=== PATIENT | female | born 1965 | race Caucasian/White ===

== ENCOUNTER 2018-04-02 17:51 | Inpatient (IN) | payer OTHER, SELFPAY ==
[2018-04-02 18:12] VITALS: BMI 28.9
[2018-04-02 18:45] VITALS: BP 144/94; PULSE 100; RESP 20; TEMP 37.4; O2SAT 98
--- NOTE | 2018-04-02 19:29 | PCM.HP.STD ---
History of Present Illness Date of Admission: 04/02/18 Chief Complaint: Left hip pain The patient is a 52 year old F who unfortunately sustained a fracture of her left intertrochanteric femur February 08, 2018 while on vacation in [facility]. She had surgery February 11, 2018 in [facility]. Patient has been doing fairly well until approximately 3 weeks ago. Patient had been weightbearing as tolerated with a walker and started having severe groin pain almost as if she had a groin pull. She did follow-up with her local orthopedic surgeon in [place] last week and at that time was identified to have failure of her hardware with cut out of the lag screw into the hip joint. Because of the severity of her discomfort and pain patient has been unable to ambulate or even transfer without severe discomfort therefore I admitted the patient for evaluation and anticipated revision surgery tomorrow Past Medical History Sulfa, Tegretol Surgical History: - - Tubal ligation, bladder surgery, septoplasty and turbinectomy Psychiatric History: Bipolar Lives: Spouse/ Significant Other Smoking Status: Never smoker Alcohol: Occasional Drugs: None Review of Systems Constitutional: Denies: Chills, Fever, Weight Change HEENT: Denies: Head Aches, Sinus Congestion, Sinus Drainage Cardiovascular: Denies: Chest Pain, Palpitations Respiratory: Denies: Cough, Shortness of breath at rest, Sputum production Gastrointestinal: Denies: Abdominal Pain, Nausea, Vomiting Genitourinary: Denies: Dysuria Musculoskeletal: Reports: - - Hip pain per history of present illness Skin: Denies: Rash, Wounds Neurological: Denies: Numbness, Tingling, Focal weakness Psychiatric: Reports: - - Bipolar disorder VTE Information - Inpt Only VTE Present on Admission: Yes VTE Mechan Device Prophylaxis: SCD's, Thigh High VASYL Hose VTE Pharm Prophylaxis ordered?: Yes - Physical Exam General: Alert, Oriented x3, Cooperative HEENT: Atraumatic, PERRLA, EOMI, Normocephalic Neck: Supple Lungs: Normal air movement Cardiovascular: Regular rate Abdomen: Soft, Non Tender Extremities: No edema, Capillary Refill Less than 3 Seconds Skin: No rashes, No breakdown Musculoskeletal: - - Severe pain with logroll and any attempted hip flexion or knee flexion. Well-healed incision on the lateral aspect of the hip. Neurovascularly intact. No calf pain is noted. Neurological: Cranial nerves II-XII grossly intact Psych/Mental Status: Normal Affect Vital Signs Temp Pulse Resp BP Pulse Ox 99.3 F H 100 20 H 144/94 H 98 04/02/18 18:45 04/02/18 18:45 04/02/18 18:45 04/02/18 18:45 04/02/18 18:45 Oxygen Delivery Method Room Air Weight: 191 lb Body Mass Index (BMI) 28.9 Assessment/Plan Mechanical complication of orthopedic implant left femur Malunion of intertrochanteric femur fracture left Plan: I reviewed the patient's x-rays that were obtained from her surgery as well as postoperative follow-up at approximately 6 weeks. Patient has had cut out of the lag screw with the lag screw now protruding into the acetabulum causing severe discomfort and pain. The intertrochanteric femur fracture has not healed and has fallen into varus alignment with this cut out. This will require surgical correction in the form of removal of this hardware as well as the conversion of the hip to a total hip arthroplasty. This was discussed with Ceci at length. The risks of surgery were discussed. Risks including but not limited to infection bleeding injury to muscles tendons nerves ligaments failure surgery loss of life or limb
--- NOTE | 2018-04-02 19:37 | RAD_ITS ---
STUDY: X-RAY - PELVIS REASON FOR EXAM: Female, 52 years old. Preoperative removal of hardware. TECHNIQUE: One view of the pelvis was obtained. COMPARISON: None. FINDINGS: There is a non-specific bowel gas pattern. Normal visualized soft tissue structures. Normal bilateral iliac wings, sacroiliac joints and visualized sacrum. Normal visualized bilateral superior and inferior pubic rami. Normal pubic symphysis. Normal ischial tuberosities. Normal visualized right femoral head. Normal right acetabulum. Normal right hip joint. IM kita and femoral neck nails are seen of the proximal left femur. There appears to be a fracture line still evident at the base of the femoral neck, and the femoral nails. At least partially external to the left femoral neck. RAD/Pelvis 1 or 2 Views IMPRESSION: Incomplete healing of a proximal left femoral fracture, and abnormal position of femoral neck nails. Electronically Signed: Joel Park MD at 23:18 EDT , Service support ,
[2018-04-02 20:44] LABS: Absolute Lymphocyte Count 1.69 X10^3/ul (0.83-4.51); Absolute Neutrophil Count 5.7 X10^3/uL (2.0-7.7); Basophil# 0.03 X10^3/uL; Basophil% 0.4 % (0-1); Eosinophil# 0.13 X10^3/uL; Eosinophils% 1.6 % (0-5); Hematocrit 36.2 % (37-47); Hemoglobin 11.6 g/dl (12.0-15.0); Lymphocyte # 1.69 X10^3/ul (4.0); Lymphocyte % 20.4 % (19-41); Mean Corpuscular Hgb 33.2 pg (27.0-32.0); Mean Corpuscular Volume 103.7 fL (81-99); Monocyte# 0.72 X10^3/uL; Monocyte% 8.7 % (0-10); Neutrophil # 5.67 X10^3/uL (2.7-7.7); Neutrophil % 68.5 % (47-70); Platelet Count 475 K/mm3 (150-450); RBC Distribution Width CV 14.5 % (11.6-14.6); Red Blood Count 3.49 M/mm3 (4.2-5.4); White Blood Count 8.3 K/mm3 (4.4-11.0)
[2018-04-02] MEDS: oxyCODONE 5 MG Tablet PO (20:50)
[2018-04-02 20:53] LABS: POSITIVE COUNT NO; POSITIVE DIFFERENTIAL NO; POSITIVE MORPHOLOGY NO
[2018-04-02 20:57] LABS: Anion Gap 8 (5-15); BUN 15 mg/dL (7-18); BUN/Creat Ratio 19.7 RATIO (10-20); Calcium,Total 9.1 mg/dL (8.5-10.1); Chloride 107 mmol/L (98-107); Creatinine, Serum 0.76 mg/dL (0.55-1.02); EST Glomerular Filtration Rate 85 mL/min (>60); Est Glom Filt Rate - Afr Amer 103 mL/min (>60); Estimated Creatinine Clearance 89.33 ml/min; Glucose 91 mg/dL (74-106); Potassium 3.6 mmol/L (3.5-5.1); Sodium Level 139 mmol/L (136-145)
[2018-04-02 21:00] LABS: hCG Titer Quant., Serum < 1 mIU/mL (<9 non-preg)
[2018-04-02] MEDS: Lactated Ringers 1,000 ML 100 ML IV (22:21)
[2018-04-02] MEDS: Morphine 4 MG/ML Syringe IV (22:21)
[2018-04-02] MEDS: 0.9% NaCl Peripheral Flush Adult/Peds IV (22:21)
[2018-04-02 22:30] VITALS: BP 126/82; PULSE 105; RESP 16; TEMP 36.9; O2SAT 97
[2018-04-03] VITALS (14 sets, daily range): BP systolic 83–148; BP diastolic 54–90; PULSE 75–106; RESP 16–18; TEMP 36.2–37.4; O2SAT 94–100; BMI 28.9
[2018-04-03 00:11] LABS: Color, Urine Yellow (Yellow); Glucose, Dipstick Normal (Normal); Ketone-Dipstick Negative (Negative); Leukocyte Esterase-Dipstick 100 /ul (Negative); Nitrite-Dipstick Positive (Negative); Occult Blood-Urine 25 /ul (Negative); Protein-Dipstick Negative (Negative); Urine Bilirubin Dipstick Negative (Negative); Urine Clarity Clear (Clear); Urine Urobilinogen Normal (Normal)
[2018-04-03] MEDS: oxyCODONE 5 MG Tablet PO ×2 (01:34→16:14)
[2018-04-03] MEDS: Morphine 4 MG/ML Syringe IV (03:35)
--- NOTE | 2018-04-03 05:00 | EKG12_ITS ---
Test Reason : Blood Pressure : / mmHG Vent. Rate : 089 BPM Atrial Rate : 089 BPM P-R Int : 140 ms QRS Dur : 088 ms QT Int : 356 ms P-R-T Axes : 024 -06 010 degrees QTc Int : 433 ms Normal sinus rhythm Nonspecific T wave abnormality Confirmed by ROXY MARIN, DMITRY ([id number]), editor & co founder KESHAWN ROBERSON ([id number] on 04/12/2018 11:20:35 AM Referred By: Confirmed By:DMITRY RAMSEY MD
[2018-04-03] MEDS: Metoprolol(XL)Succ 50 MG Tablet PO (07:53)
[2018-04-03] MEDS: Levothyroxine 112 MCG Tablet PO (07:59)
--- NOTE | 2018-04-03 08:09 | NURSING ---
report called to Kiya in [facility]. aware that pt has glasses and cell phone that she will be bringing to [facility] with her.
--- NOTE | 2018-04-03 08:20 | FEM._PTH ---
PATIENT: FOREIGN MARTI LOC: MS3 U#:[id number] AGE/SX: 52/F ROOM: [facility] [place] RE04/02/[address]: Dr. Raghav Peña DO : 1965 BED: 1 DIS: 04/05/2018 SPEC #: [id number] RECD: 04/03/18 11:58 STATUS: BASSAM KRISTY #: [id number] TROY: 04/03/18 08:[address]: Raghav Peña DEPT: SURGICAL PATHOLOGY RECD BY: Leoncio Márquez Tissues: Hip, NOS Procedures: Decalcification bone/plaque Surgery Specimen Level IV HEADER OPERATION: Removal hardware, total hip replacement PRE-OP DIAGNOSIS: Mechanical complication of orthopedic implant left femur; malunion of intertrochanteric femur fracture left TISSUE SUBMITTED: Left femoral head and tissue and bone MICROSCOPIC DIAGNOSIS Left femoral head tissue and bone, total hip replacement/resection: Femoral head with reactive changes, consistent with callous formation, clinically malunion intertrochanteric femur fracture left hip. Fibroconnective tissue and reactive synovial tissue. PERRI:augustus 04/06/18 MICROSCOPIC DESCRIPTION Slides are reviewed. GROSS DESCRIPTION Received is one container designated left femoral head. The specimen consists of a femoral head with portion of femoral neck. The femoral head measures 4 x 4 x 3.5 cm and the portion of femoral neck measures up to 2 cm in length. The resection margin is irregular and hemorrhagic. The articular surface is smooth. Also present at the top of femoral head is a piece of soft tissue measuring 2.5 x 1.5 x 0.5 cm. Also present in the container are multiple fragments of bone reamings measuring in aggregate 6 x 6 x 2 cm. Rover Tender sections are submitted in four cassettes as follows: 1 - soft tissue, 2 - bone reamings, 3 & 4 ? femoral head. Cassettes 2-4 are submitted after decalcification. / PERRI:augustus 04/03/18 TC:5 CPT: 10411, 14900
--- NOTE | 2018-04-03 09:00 | RAD_ITS ---
STUDY: X-RAY - PELVIS REASON FOR EXAM: Female, 52 years old. Hardware removal. Total hip replacement. TECHNIQUE: One view of the pelvis was obtained. COMPARISON: 04/02/2018. FINDINGS: Suboptimal positioning. The upper portion of the total hip arthroplasty is off the field of view. The femoral stem appears to be in satisfactory position. Electronically Signed: Joel Park MD at 20:17 EDT , Service support , RAD/Pelvis 1 or 2 Views
[2018-04-03] MEDS: Cefazolin 2 GM in 0.9% Normal Saline 100 ML IV (09:19)
[2018-04-03] MEDS: Ciprofloxacin 400 MG/200 ML BAG 200 MG IV (09:24)
--- NOTE | 2018-04-03 10:50 | RAD_ITS ---
STUDY: X-RAY - PELVIS AND LEFT HIP REASON FOR EXAM: Female, 52 years old. Left hip replacement. TECHNIQUE: Radiological exam, hip, unilateral, with pelvis when performed; 2 or 3 views. COMPARISON: Comparison is made with prior study dated April 02, 2018. FINDINGS: The patient is status post left total hip replacement. There is good alignment. The previously seen left intramedullary kita and screw fixation device as been removed. Postoperative soft tissue changes. RAD/Hip Min 2 Views (Portable) IMPRESSION: Status post left total hip replacement. Electronically Signed: Scottie Schmitt MD at 14:32 EDT Tel [phone], Service support ,
--- NOTE | 2018-04-03 11:09 | PCM.OPRPT ---
Report of Operation Date of Procedure: 04/03/18 Pre-Operative Diagnosis: Mechanical failure of orthopedic implant left femur. Malunion of intertrochanteric femur fracture left Post-Operative Diagnosis: Same Surgery/Procedure Performed:: Removal of retained deep orthopedic implant and conversion to left total hip arthroplasty Description of Surgical Findings:: Malunion intertrochanteric femur with screw encroachment upon the acetabulum resident assistant: Hammad Montalvo Type of Anesthesia:: General Anesthesiologist: Je Singh Special Medications: txa Specimen's removed: Bone and soft tissue Estimated Blood Loss (mL): 300 Fluids Replaced: See anesthesia report Description of Procedure: Implants: Huggins Trident size 50 mm cup with MDM +3 head and 14 mm samaritan body with 23 mm modular neck Surgical indications: Patient had failure of her internal fixation from previous placement of cephalo-medullary nail with screw cut out through the femoral head and into the acetabulum. She has severe pain and inability to move the leg or walk because of severe discomfort and pain. The surgery was completed on 02/11/2018 Procedure description: The patient was greeted in the preoperative area the left hip was marked with surgical marker preoperative antibiotics administered. The patient was then taken to or suite in stable condition. Preoperative tranexamic acid was also utilized. Once the patient was placed in the supine position on the operating room table and once adequate anesthesia was obtained they were then placed in the lateral decubitus position with the surgical hip facing the field. All bony prominences were well-padded. A commercial hip position was utilized. The appropriate extremity was then prepped and draped in usual sterile fashion. Ioban was placed on the skin. Surgical timeout was performed and surgery was commenced. Standard anterolateral approach to the hip was then performed incision was planned and carried out with a #10 blade. Dissection was then carried length of the incision to the IT band which was split proximally and distally. A Charnley retractor was then placed for soft tissue retraction exposing the gluteus medius. The hip was then approached through a transgluteal approach and dislocated through an anterior capsulectomy. The femoral head was identified and the lag screw was noted on the lateral aspect of the femur. The locking mechanism was released the proximal aspect of the cephalo-medullary nail. The 2 lag screws were then removed from the femoral head and neck without difficulty. I then placed the bolt on the proximal aspect of the implant and made a 2 cm incision overlying the distal locking screw. The screw was then removed without difficulty followed by removal of the cephalo-medullary nail. Once this was complete the femoral head and neck was then removed and placed in the back table. Once this was complete acetabular retractors were placed anteriorly and posteriorly and a 4 mm Steinmann pin was placed anterior superior aspect of the acetabulum for soft tissue retention. Labrum was then removed from the acetabulum exposing the entire cup of the acetabulum. Sequential reaming was then commenced and the acetabulum was medialized and sequentially widened in order to accommodate appropriate size cup. The acetabular cup was then impacted into position to the appropriate depth referencing approximately 30? inversion 45? of inclination. Excellent purchase was obtained. 0 screws were placed in the cup. The MDM modular metal cup was then implanted and locking mechanism was engaged Attention was then turned to the femoral preparation. The hip was placed in the 90/90 position and a lateralizing box osteotome was utilized. Femoral starting awl was used followed by sequential broaching to the appropriate size. Sequential reaming was then commenced to size 14 and this is placed in a standard position. Based on measurements obtained with the implant this is certainly to femoral cortical breaths below the distal locking screw which certainly felt this was far enough to prevent stress riser from that previous screw placement. Once the appropriate stem was chosen this was then implanted to the appropriate depth then reaming was then commenced for the body and modular system this is reamed to size 23 the trial was then placed on the inserted stem to approximately 15? of version. The standard head and neck were then trialed and intraoperative radiographs were obtained to assess fixation as well as assess leg length. This was quite stable however there is some impingement with external rotation at approximately 60?. I then elected to place a +3 mm trial. I did feel that this improved her leg length as well as decreased the amount of impingement as this externally rotated to approximately 75-80? without any impingement. This was chosen as the final implant the hip was once again dislocated and the modular body was then placed on the stem this was secured with a torque wrench between 120 and 184 pounds of pressure. The trunnion was then cleaned and dried meticulously and the +3 MDM head was then placed on a clean dry trunnion utilizing Alexander taper. The joint cocktail was utilized in the soft tissues of the hip for postoperative pain control. The entire greater trochanter was intact and a repair of the gluteal musculature was performed in standard fashion to the greater trochanter. Anatomic closure of the gluteus medius and minimus was performed with #1 Vicryl [id number] type fashion followed by closure of the IT band with #1 Vicryl 0 Vicryl was utilized in subcutaneous tissue and surgical abril were placed in the skin. A well-padded nonadherent dressing was applied. Patient was taken to PACU in stable condition. No complications were identified. Will follow standard postop protocol for total hip arthroplasty. Patient must use assistive device for ambulation for approximately 6 weeks of the gluteal musculature heals. Physician administrative assistant data entry was integral in all portions of this procedure. They assisted with positioning the patient, draping the extremity, holding retractors, closing the wound, and applying the dressing. This was all done under my direct supervision. The physician administrative assistant data entry was essential for a successful, efficient surgery. - Complications None known - Admit VTE Documentation VTE Present on Admission: Yes VTE Mechan Device Prophylaxis: SCD's, Thigh High VASYL Hose VTE Pharm Prophylaxis ordered?: Yes
--- NOTE | 2018-04-03 11:18 | OP.PCM_ITS ---
Report of Operation Date of Procedure: 04/03/18 Pre-Operative Diagnosis: Mechanical failure of orthopedic implant left femur. Malunion of intertrochanteric femur fracture left Post-Operative Diagnosis: Same Surgery/Procedure Performed:: Removal of retained deep orthopedic implant and conversion to left total hip arthroplasty Description of Surgical Findings:: Malunion intertrochanteric femur with screw encroachment upon the acetabulum functional architect: Hammad Montalvo Type of Anesthesia:: General Anesthesiologist: Je Singh Special Medications: txa Specimen's removed: Bone and soft tissue Estimated Blood Loss (mL): 300 Fluids Replaced: See anesthesia report Description of Procedure: Implants: Browns Trident size 50 mm cup with MDM +3 head and 14 mm mosque body with 23 mm modular neck Surgical indications: Patient had failure of her internal fixation from previous placement of cephalo-medullary nail with screw cut out through the femoral head and into the acetabulum. She has severe pain and inability to move the leg or walk because of severe discomfort and pain. The surgery was completed on 02/11/2018 Procedure description: The patient was greeted in the preoperative area the left hip was marked with surgical marker preoperative antibiotics administered. The patient was then taken to or suite in stable condition. Preoperative tranexamic acid was also utilized. Once the patient was placed in the supine position on the operating room table and once adequate anesthesia was obtained they were then placed in the lateral decubitus position with the surgical hip facing the field. All bony prominences were well-padded. A commercial hip position was utilized. The appropriate extremity was then prepped and draped in usual sterile fashion. Ioban was placed on the skin. Surgical timeout was performed and surgery was commenced. Standard anterolateral approach to the hip was then performed incision was planned and carried out with a #10 blade. Dissection was then carried length of the incision to the IT band which was split proximally and distally. A Charnley retractor was then placed for soft tissue retraction exposing the gluteus medius. The hip was then approached through a transgluteal approach and dislocated through an anterior capsulectomy. The femoral head was identified and the lag screw was noted on the lateral aspect of the femur. The locking mechanism was released the proximal aspect of the cephalo-medullary nail. The 2 lag screws were then removed from the femoral head and neck without difficulty. I then placed the bolt on the proximal aspect of the implant and made a 2 cm incision overlying the distal locking screw. The screw was then removed without difficulty followed by removal of the cephalo-medullary nail. Once this was complete the femoral head and neck was then removed and placed in the back table. Once this was complete acetabular retractors were placed anteriorly and posteriorly and a 4 mm Steinmann pin was placed anterior superior aspect of the acetabulum for soft tissue retention. Labrum was then removed from the acetabulum exposing the entire cup of the acetabulum. Sequential reaming was then commenced and the acetabulum was medialized and sequentially widened in order to accommodate appropriate size cup. The acetabular cup was then impacted into position to the appropriate depth referencing approximately 30? inversion 45? of inclination. Excellent purchase was obtained. 0 screws were placed in the cup. The MDM modular metal cup was then implanted and locking mechanism was engaged Attention was then turned to the femoral preparation. The hip was placed in the 90/90 position and a lateralizing box osteotome was utilized. Femoral starting awl was used followed by sequential broaching to the appropriate size. Sequential reaming was then commenced to size 14 and this is placed in a standard position. Based on measurements obtained with the implant this is certainly to femoral cortical breaths below the distal locking screw which certainly felt this was far enough to prevent stress riser from that previous screw placement. Once the appropriate stem was chosen this was then implanted to the appropriate depth then reaming was then commenced for the body and modular system this is reamed to size 23 the trial was then placed on the inserted stem to approximately 15? of version. The standard head and neck were then trialed and intraoperative radiographs were obtained to assess fixation as well as assess leg length. This was quite stable however there is some impingement with external rotation at approximately 60?. I then elected to place a +3 mm trial. I did feel that this improved her leg length as well as decreased the amount of impingement as this externally rotated to approximately 75-80? without any impingement. This was chosen as the final implant the hip was once again dislocated and the modular body was then placed on the stem this was secured with a torque wrench between 120 and 184 pounds of pressure. The trunnion was then cleaned and dried meticulously and the +3 MDM head was then placed on a clean dry trunnion utilizing Alexander taper. The joint cocktail was utilized in the soft tissues of the hip for postoperative pain control. The entire greater trochanter was intact and a repair of the gluteal musculature was performed in standard fashion to the greater trochanter. Anatomic closure of the gluteus medius and minimus was performed with #1 Vicryl [id number]-ih-tisen type fashion followed by closure of the IT band with #1 Vicryl 0 Vicryl was utilized in subcutaneous tissue and surgical abril were placed in the skin. A well-padded nonadherent dressing was applied. Patient was taken to PACU in stable condition. No complications were identified. Will follow standard postop protocol for total hip arthroplasty. Patient must use assistive device for ambulation for approximately 6 weeks of the gluteal musculature heals. Physician development assistant was integral in all portions of this procedure. They assisted with positioning the patient, draping the extremity, holding retractors , closing the wound, and applying the dressing. This was all done under my direct supervision. The physician development assistant was essential for a successful, efficient surgery. - Complications None known - Admit VTE Documentation VTE Present on Admission: Yes VTE Mechan Device Prophylaxis: SCD's, Thigh High VASYL Hose VTE Pharm Prophylaxis ordered?: Yes
[2018-04-03] MEDS: Scopolamine 1mg/72hr Patch 1 PATCH TD (12:27)
--- NOTE | 2018-04-03 13:45 | CASEMGMT ---
KIMMY DIAZ Face to Face with patient for initial transition planning/care coordination assessment. RN JOE introduced self and role at [facility]. Patient lying in bed, alert and oriented, family at bedside. Patient willing to participate in assessment and is able to answer all questions appropriately. Care providers, pharmacy, and demographics verified. See link attached. Pt wishes to discharge home with [facility] Nursing [facility] out of [place] [phone]. Patient states she has no further needs or concerns at this time. CM to follow for discharge planning needs that may arise. Disposition Plan: Patient to discharge home with [facility],family support, and follow-up plans in place.
[2018-04-03] MEDS: Lactated Ringers 1,000 ML 100 ML IV (13:49)
[2018-04-03] MEDS: Acetaminophen 500 MG Tablet 1000 MG PO ×2 (13:49→21:44)
--- NOTE | 2018-04-03 17:28 | PN_ITS ---
Subjective: Pt resting comfortably in bed post op hip revision per Dr. Peña. She has no SOB, cough, fever, pain is controlled. She has no palpitations or CP. Preop TSH was elevated at 22. She occasionally misses a dose however normally she is good about taking it. She states her bipolar disorder is very well controlled on her home meds. She will not be able to get her antipsychotic until tomorrow AM but does not feel that this will be an issue. Original hip fracture occurred while ambulating in [facility], flown to [place], had surgery there in February. - Physical Exam General: Alert, Oriented x3, Cooperative HEENT: Atraumatic, PERRLA, EOMI, Normocephalic, - - thyroid normal. no nodules. Neck: Supple, No JVD, Negative Carotid Bruits Lungs: Clear to auscultation, Normal air movement Cardiovascular: Regular rate, No murmurs Abdomen: Bowel Sounds Present, Soft, Non Tender Extremities: No edema, Capillary Refill Less than 3 Seconds Skin: No rashes, No breakdown Musculoskeletal: No Tenderness to Palpation of Joints or Extremities Neurological: Cranial nerves II-XII grossly intact Psych/Mental Status: Normal Affect, Appropriate Vital Signs Temp Pulse Resp BP Pulse Ox 98.4 F 91 16 122/82 H 100 04/03/18 15:25 04/03/18 15:25 04/03/18 15:25 04/03/18 15:25 04/03/18 15:25 Oxygen Delivery Method Room Air Weight: 191 lb Body Mass Index (BMI) 28.9 Intake and Output for Last 24 Hours 04/01/18 04/02/18 04/03/18 23:59 23:59 23:59 Intake Total 240 / 240 3451 / 3451 Output Total 400 / 400 Balance 240 / 240 3051 / 3051 Laboratory Tests Past 24 Hrs 04/02/18 04/02/18 04/02/18 20:12 20:12 20:12 WBC 8.3 RBC 3.49 L Hgb 11.6 L Hct 36.2 L MCV 103.7 H MCH 33.2 H MCHC 32.0 RDW 14.5 RDW Differential 55.0 H Plt Count 475 H MPV 10.0 Immature Gran % (Auto) 0.400 Neut % (Auto) 68.5 Lymph % (Auto) 20.4 [place] % (Auto) 8.7 Eos % (Auto) 1.6 Baso % (Auto) 0.4 Absolute Neuts (auto) 5.7 Absolute Lymphs (auto) 1.69 Total Counted Not Reportable Sodium 139 Potassium 3.6 Chloride 107 Carbon Dioxide 24.0 Anion Gap 8 BUN 15 Creatinine 0.76 Estim Creat Clear Calc 89.33 Est GFR (MDRD) Af Amer 103 Est GFR (MDRD) Non-Af 85 BUN/Creatinine Ratio 19.7 Glucose 91 Calcium 9.1 TSH HCG, Quant Urine Color Urine Clarity Urine pH Ur Specific [place] Urine Protein Urine Glucose (UA) Urine Ketones Urine Occult Blood Urine Nitrite Urine Bilirubin Urine Urobilinogen Ur Leukocyte Esterase Blood Type O POSITIVE Antibody Screen NEGATIVE 04/02/18 04/02/18 04/03/18 20:12 20:40 05:16 WBC RBC Hgb Hct MCV MCH MCHC RDW RDW Differential Plt Count MPV Immature Gran % (Auto) Neut % (Auto) Lymph % (Auto) [place] % (Auto) Eos % (Auto) Baso % (Auto) Absolute Neuts (auto) Absolute Lymphs (auto) Total Counted Sodium Potassium Chloride Carbon Dioxide Anion Gap BUN Creatinine Estim Creat Clear Calc Est GFR (MDRD) Af Amer Est GFR (MDRD) Non-Af BUN/Creatinine Ratio Glucose Calcium TSH 22.10 H HCG, Quant < 1 Urine Color Yellow Urine Clarity Clear Urine pH 6.0 Ur Specific [place] 1.020 Urine Protein Negative Urine Glucose (UA) Normal Urine Ketones Negative Urine Occult Blood 25 H Urine Nitrite Positive H Urine Bilirubin Negative Urine Urobilinogen Normal Ur Leukocyte Esterase 100 H Blood Type Antibody Screen Medical Necessity - Tobacco Use Smoking Status: Never smoker Assessment/Plan 1. Left hip revision - POD#0. Doing well no issues. original Fx occurred while ambulating - High risk for osteoporosis. Will need o/p work up. 2. Hypothyroidism - TSH elevated. Check t4, t3. continue synthroid. 3. Bipolar - restart home antipsychotic in AM when patients can bring it. OCP is being used for mood stabilization as well. 4. HTN - stable 5. High risk drinking behavior - monitor for withdrawal. 1 bottle of wine per night. DVT ppx: 325 asa BID per ortho Thank you for the opportunity to participate in the care of this patient This patient was seen by Gomez Garcia PA-C under the supervision of Doctor Torres.
[2018-04-03] MEDS: Loperamide 2 MG Capsule 4 MG PO (17:36)
[2018-04-03] MEDS: Aspirin 325 MG Tablet PO (17:36)
[2018-04-03] MEDS: Cefazolin 1 GM/50 ML BAG IV (17:36)
[2018-04-03 19:15] LABS: Free T3 2.8 pg/mL (2.18-3.98); T4 Free Direct 0.95 ng/dL (0.76-1.46)
[2018-04-03] MEDS: morphine SR 15 MG Tablet PO (21:43)
[2018-04-04] MEDS: Cefazolin 1 GM/50 ML BAG IV (01:51)
[2018-04-04 01:55] VITALS: BP 119/66; PULSE 100; RESP 16; TEMP 36.6; O2SAT 100
[2018-04-04] MEDS: oxyCODONE 5 MG Tablet PO ×4 (04:41→20:38)
[2018-04-04] MEDS: Levothyroxine 112 MCG Tablet PO (04:43)
[2018-04-04] MEDS: Acetaminophen 500 MG Tablet 1000 MG PO ×3 (04:43→21:45)
[2018-04-04 06:21] LABS: Hematocrit 25.5 % (37-47); Hemoglobin 8.1 g/dl (12.0-15.0); Mean Corp Hgb Conc 31.8 g/gl (32-36); Mean Corpuscular Hgb 34.3 pg (27.0-32.0); Mean Corpuscular Volume 108.1 fL (81-99); Mean Platelet Vol. 10.7 fl (6.2-12.0); Platelet Count 373 K/mm3 (150-450); RBC Distribution Width SD 53.5 fl (35.1-43.9); Red Blood Count 2.36 M/mm3 (4.2-5.4); White Blood Count 11.2 K/mm3 (4.4-11.0)
[2018-04-04 06:26] LABS: Scan Indicated on CBC? Y/N NO
[2018-04-04 06:32] LABS: Anion Gap 10 (5-15); BUN 11 mg/dL (7-18); BUN/Creat Ratio 12.8 RATIO (10-20); Calcium,Total 7.8 mg/dL (8.5-10.1); Chloride 108 mmol/L (98-107); Creatinine, Serum 0.86 mg/dL (0.55-1.02); EST Glomerular Filtration Rate 74 mL/min (>60); Est Glom Filt Rate - Afr Amer 89 mL/min (>60); Estimated Creatinine Clearance 78.95 ml/min; Glucose 188 mg/dL (74-106); Potassium 3.4 mmol/L (3.5-5.1); Sodium Level 142 mmol/L (136-145)
[2018-04-04 07:43] VITALS: BP 121/75; PULSE 112; RESP 16; TEMP 37.1; O2SAT 97
[2018-04-04] MEDS: Aspirin 325 MG Tablet PO ×2 (07:50→17:08)
[2018-04-04 07:51] VITALS: PULSE 112
[2018-04-04] MEDS: Metoprolol(XL)Succ 50 MG Tablet PO (07:51)
--- NOTE | 2018-04-04 07:51 | PCM.PN.ORT ---
Subjective: Patient sitting at bedside eating breakfast. Patient's pain is well-managed. Denies chest pain, shortness breath, calf pain, or nausea vomiting. No other complaints. Objective: Dressings clean dry intact. Negative signs and symptoms of DVT. Patient's vitals are within normal limits. Patient hemoglobin is 8.1, potassium is 3.4. Patient is afebrile neurovascular is intact. - Physical Exam General: Alert, Oriented x3, Cooperative HEENT: PERRLA Oral: Moist Mucosa Neurological: Cranial nerves II-XII grossly intact Psych/Mental Status: Normal Affect, Alert and oriented to time, place, person, mood and affect Vital Signs Temp Pulse Resp BP Pulse Ox 98.8 F 112 H 16 121/75 H 97 04/04/18 07:43 04/04/18 07:43 04/04/18 07:43 04/04/18 07:43 04/04/18 07:43 Oxygen Delivery Method Room Air Weight: 86.636 kg Body Mass Index (BMI) 28.9 Intake and Output for Last 24 Hours 04/02/18 04/03/18 04/04/18 23:59 23:59 23:59 Intake Total 240 / 240 4181 / 4181 560 / 560 Output Total 400 / 400 200 / 200 Balance 240 / 240 3781 / 3781 360 / 360 Laboratory Tests Past 24 Hrs 04/03/18 04/04/18 04/04/18 05:16 05:28 05:28 WBC 11.2 H RBC 2.36 L Hgb 8.1 L Hct 25.5 L MCV 108.1 H MCH 34.3 H MCHC 31.8 L RDW 14.0 RDW Differential 53.5 H Plt Count 373 MPV 10.7 Sodium 142 Potassium 3.4 L Chloride 108 H Carbon Dioxide 24.0 Anion Gap 10 BUN 11 Creatinine 0.86 Estim Creat Clear Calc 78.95 Est GFR (MDRD) Af Amer 89 Est GFR (MDRD) Non-Af 74 BUN/Creatinine Ratio 12.8 Glucose 188 H Calcium 7.8 L Free T4 0.95 Free T3 pg/dL 2.8 Medical Necessity - Tobacco Use Smoking Status: Never smoker Assessment/Plan Status post left total hip arthroplasty with hardware removal Postop anemia secondary to acute blood loss/stable Plan 1. Continue all pain medications as prescribed 2. Aspirin 325 mg 1 p.o. every 12 hours ?30 days for postop DVT prophylaxis 3. Encourage incentive spirometry 4. Begin physical therapy today weight-bear as tolerated with walker 5. Possible discharge home tomorrow 6. Repeat CBC BMP in a.m. 7. Medicine will continue to follow and manage medically and address hypokalemia
[2018-04-04] MEDS: morphine SR 15 MG Tablet PO ×2 (09:07→21:45)
[2018-04-04 11:28] VITALS: BP 125/76; PULSE 115; RESP 16; TEMP 36.6; O2SAT 95
--- NOTE | 2018-04-04 13:31 | PN_ITS ---
Subjective: Pt resting comfortably in bed. Pain with activity, mild pain at rest. Pt was able to get antipsychotics here. No palp, mild racing. Did get toprol. No nausea /vomiting/sob. - Physical Exam General: Alert, Oriented x3, Cooperative HEENT: Atraumatic, PERRLA, EOMI, Normocephalic Neck: Supple, No JVD, Negative Carotid Bruits Lungs: Clear to auscultation, Normal air movement Cardiovascular: Regular rate, No murmurs Abdomen: Bowel Sounds Present, Soft, Non Tender Extremities: No edema, Capillary Refill Less than 3 Seconds Skin: No rashes, No breakdown Musculoskeletal: No Tenderness to Palpation of Joints or Extremities Neurological: Cranial nerves II-XII grossly intact Psych/Mental Status: Normal Affect, Appropriate, Alert and oriented to time, place, person, mood and affect Vital Signs Temp Pulse Resp BP Pulse Ox 97.9 F 115 H 16 125/76 H 95 04/04/18 11:28 04/04/18 11:28 04/04/18 11:28 04/04/18 11:28 04/04/18 11:28 Oxygen Delivery Method Room Air Weight: 191 lb Body Mass Index (BMI) 28.9 Intake and Output for Last 24 Hours 04/02/18 04/03/18 04/04/18 23:59 23:59 23:59 Intake Total 240 / 240 4181 / 4181 1010 / 1010 Output Total 400 / 400 200 / 200 Balance 240 / 240 3781 / 3781 810 / 810 Laboratory Tests Past 24 Hrs 04/03/18 04/04/18 04/04/18 05:16 05:28 05:28 WBC 11.2 H RBC 2.36 L Hgb 8.1 L Hct 25.5 L MCV 108.1 H MCH 34.3 H MCHC 31.8 L RDW 14.0 RDW Differential 53.5 H Plt Count 373 MPV 10.7 Sodium 142 Potassium 3.4 L Chloride 108 H Carbon Dioxide 24.0 Anion Gap 10 BUN 11 Creatinine 0.86 Estim Creat Clear Calc 78.95 Est GFR (MDRD) Af Amer 89 Est GFR (MDRD) Non-Af 74 BUN/Creatinine Ratio 12.8 Glucose 188 H Calcium 7.8 L Vitamin B12 Folate Free T4 0.95 Free T3 pg/dL 2.8 04/04/18 04/04/18 05:28 05:28 WBC RBC Hgb Hct MCV MCH MCHC RDW RDW Differential Plt Count MPV Sodium Potassium Chloride Carbon Dioxide Anion Gap BUN Creatinine Estim Creat Clear Calc Est GFR (MDRD) Af Amer Est GFR (MDRD) Non-Af BUN/Creatinine Ratio Glucose Calcium Vitamin B12 Pending Folate 15.40 Free T4 Free T3 pg/dL Medical Necessity - Tobacco Use Smoking Status: Never smoker Assessment/Plan 1. Left hip revision - POD#1. Doing well no issues. original Fx occurred while ambulating - High risk for osteoporosis. Will need o/p work up. 2. Blood loss anemia - postsurgical. Follow CBC. Macrocytic. Check b12/folate given alcohol use. 3. Hypothyroidism - TSH elevated, but t3/4 normal. 4. Bipolar - home meds 5. HTN - stable 6. High risk drinking behavior - monitor for withdrawal. 1 bottle of wine per night. 7. Hypokalemia - replete. DVT ppx: 325 asa BID per ortho Thank you for the opportunity to participate in the care of this patient This patient was seen by Gomez Garcia PA-C under the supervision of Doctor Torres.
[2018-04-04 14:35] VITALS: BP 116/67; PULSE 106; RESP 16; TEMP 37; O2SAT 100
--- NOTE | 2018-04-04 15:00 | CASEMGMT ---
RN JOE called [facility] and patient is current with C. Referral made for fpc, PT/OT. Discharge instruction and HHC order will need to be faxed to [facility] to fax number [phone]. CM will continue to follow this patient and plan for a safe discharge.
[2018-04-04 20:25] VITALS: BP 119/74; PULSE 114; RESP 17; TEMP 36.8; O2SAT 97
[2018-04-04] MEDS: Zolpidem Tartrate 5 MG Tablet PO (23:40)
[2018-04-05 02:25] VITALS: BP 139/80; PULSE 110; RESP 18; TEMP 36.4; O2SAT 100
[2018-04-05] MEDS: oxyCODONE 5 MG Tablet PO ×3 (04:18→16:45)
[2018-04-05] MEDS: Acetaminophen 500 MG Tablet 1000 MG PO ×2 (05:09→15:59)
[2018-04-05] MEDS: Levothyroxine 112 MCG Tablet PO (05:09)
[2018-04-05 06:40] LABS: Absolute Lymphocyte Count 1.36 X10^3/ul (0.83-4.51); Absolute Neutrophil Count 9.1 X10^3/uL (2.0-7.7); Basophil# 0.03 X10^3/uL; Basophil% 0.3 % (0-1); Eosinophil# 0.13 X10^3/uL; Eosinophils% 1.1 % (0-5); Hematocrit 26.3 % (37-47); Hemoglobin 8.2 g/dl (12.0-15.0); Lymphocyte # 1.36 X10^3/ul (4.0); Lymphocyte % 11.9 % (19-41); Mean Corp Hgb Conc 31.2 g/gl (32-36); Mean Corpuscular Hgb 34.3 pg (27.0-32.0); Monocyte# 0.79 X10^3/uL; Monocyte% 6.9 % (0-10); Neutrophil # 9.06 X10^3/uL (2.7-7.7); Neutrophil % 79.4 % (47-70); Platelet Count 379 K/mm3 (150-450); RBC Distribution Width CV 14.6 % (11.6-14.6); RBC Distribution Width SD 55.9 fl (35.1-43.9); Red Blood Count 2.39 M/mm3 (4.2-5.4); White Blood Count 11.4 K/mm3 (4.4-11.0)
[2018-04-05 06:42] LABS: POSITIVE COUNT NO; POSITIVE DIFFERENTIAL NO; POSITIVE MORPHOLOGY NO
[2018-04-05 06:58] LABS: Anion Gap 10 (5-15); BUN 11 mg/dL (7-18); BUN/Creat Ratio 16.8 RATIO (10-20); Calcium,Total 8.1 mg/dL (8.5-10.1); Chloride 107 mmol/L (98-107); Creatinine, Serum 0.66 mg/dL (0.55-1.02); EST Glomerular Filtration Rate 101 mL/min (>60); Est Glom Filt Rate - Afr Amer 122 mL/min (>60); Estimated Creatinine Clearance 102.87 ml/min; Glucose 137 mg/dL (74-106); Potassium 3.4 mmol/L (3.5-5.1); Sodium Level 141 mmol/L (136-145)
[2018-04-05 08:36] LABS: Vitamin B12 190 pg/mL (211-911)
[2018-04-05 10:00] VITALS: BP 127/86; PULSE 117; RESP 16; TEMP 37.2; O2SAT 100
[2018-04-05 11:03] VITALS: PULSE 104
[2018-04-05] MEDS: Metoprolol(XL)Succ 50 MG Tablet PO (11:03)
[2018-04-05] MEDS: Aspirin 325 MG Tablet PO ×2 (11:03→16:46)
[2018-04-05] MEDS: morphine SR 15 MG Tablet PO (11:04)
--- NOTE | 2018-04-05 11:30 | PCM.PROGNOTE ---
Subjective: No pain at rest. No dizziness, LH. No nausea/vomiting. Tolerating PO. Able to walk with pain. No SOB. - Physical Exam General: Alert, Oriented x3, Cooperative HEENT: Atraumatic, PERRLA, EOMI, Normocephalic Neck: Supple, No JVD, Negative Carotid Bruits Lungs: Clear to auscultation, Normal air movement Cardiovascular: Regular rate, No murmurs Abdomen: Bowel Sounds Present, Soft, Non Tender Extremities: No edema, Capillary Refill Less than 3 Seconds Skin: No rashes, No breakdown Musculoskeletal: No Tenderness to Palpation of Joints or Extremities Neurological: Cranial nerves II-XII grossly intact Psych/Mental Status: Normal Affect, Appropriate, Alert and oriented to time, place, person, mood and affect Vital Signs Temp Pulse Resp BP Pulse Ox 97.5 F L 104 H 18 139/80 H 100 04/05/18 02:25 04/05/18 11:03 04/05/18 02:25 04/05/18 02:25 04/05/18 02:25 Oxygen Delivery Method Room Air Weight: 191 lb Body Mass Index (BMI) 28.9 Intake and Output for Last 24 Hours 04/03/18 04/04/18 04/05/18 23:59 23:59 23:59 Intake Total 4181 / 4181 1979 / 1979 340 / 340 Output Total 400 / 400 200 / 200 Balance 3781 / 3781 1780 / 1780 340 / 340 Laboratory Tests Past 24 Hrs 04/04/18 04/05/18 04/05/18 05:28 06:20 06:20 WBC 11.4 H RBC 2.39 L Hgb 8.2 L Hct 26.3 L MCV 110.0 H MCH 34.3 H MCHC 31.2 L RDW 14.6 RDW Differential 55.9 H Plt Count 379 MPV 10.0 Immature Gran % (Auto) 0.400 Neut % (Auto) 79.4 H Lymph % (Auto) 11.9 L [place] % (Auto) 6.9 Eos % (Auto) 1.1 Baso % (Auto) 0.3 Absolute Neuts (auto) 9.1 H Absolute Lymphs (auto) 1.36 Total Counted Not Reportable Sodium 141 Potassium 3.4 L Chloride 107 Carbon Dioxide 24.0 Anion Gap 10 BUN 11 Creatinine 0.66 Estim Creat Clear Calc 102.87 Est GFR (MDRD) Af Amer 122 Est GFR (MDRD) Non-Af 101 BUN/Creatinine Ratio 16.8 Glucose 137 H Calcium 8.1 L Vitamin B12 190 L Medical Necessity - Tobacco Use Smoking Status: Never smoker Assessment/Plan 1. Left hip revision - POD#2. Doing well no issues. original Fx occurred while ambulating - High risk for osteoporosis. Will need o/p work up. 2. Blood loss anemia with b12 deficiency- stable. started b12 po. follow up as o/p. 3. Hypothyroidism - TSH elevated, but t3/4 normal. 4. Bipolar - home meds 5. HTN - stable 6. High risk drinking behavior - monitor for withdrawal. 1 bottle of wine per night. 7. Hypokalemia - replete. DVT ppx: 325 asa BID per ortho Thank you for the opportunity to participate in the care of this patient This patient was seen by Gomez Garcia PA-C under the supervision of Doctor Torres.
--- NOTE | 2018-04-05 11:43 | PCM.PN.ORT ---
Subjective: Patient sitting at bedside pain well-managed. Patient states she has had headache with no associated symptoms. Patient denies chest pain shortness of breath, nausea vomiting. Patient ready for discharge home Objective: Dressings clean dry intact. Negative signs symptoms of DVT. Patient's potassium is 3.4, hemoglobin is 8.2. Vital signs labs otherwise within normal limits. Patient is afebrile neurovascular is otherwise intact. - Physical Exam General: Alert, Oriented x3, Cooperative Neurological: Cranial nerves II-XII grossly intact Psych/Mental Status: Normal Affect, Alert and oriented to time, place, person, mood and affect Vital Signs Temp Pulse Resp BP Pulse Ox 97.5 F L 104 H 18 139/80 H 100 04/05/18 02:25 04/05/18 11:03 04/05/18 02:25 04/05/18 02:25 04/05/18 02:25 Oxygen Delivery Method Room Air Weight: 86.636 kg Body Mass Index (BMI) 28.9 Intake and Output for Last 24 Hours 04/03/18 04/04/18 04/05/18 23:59 23:59 23:59 Intake Total 4181 / 4181 1979 / 1979 340 / 340 Output Total 400 / 400 200 / 200 Balance 3781 / 3781 1780 / 1780 340 / 340 Laboratory Tests Past 24 Hrs 04/04/18 04/05/18 04/05/18 05:28 06:20 06:20 WBC 11.4 H RBC 2.39 L Hgb 8.2 L Hct 26.3 L MCV 110.0 H MCH 34.3 H MCHC 31.2 L RDW 14.6 RDW Differential 55.9 H Plt Count 379 MPV 10.0 Immature Gran % (Auto) 0.400 Neut % (Auto) 79.4 H Lymph % (Auto) 11.9 L [place] % (Auto) 6.9 Eos % (Auto) 1.1 Baso % (Auto) 0.3 Absolute Neuts (auto) 9.1 H Absolute Lymphs (auto) 1.36 Total Counted Not Reportable Sodium 141 Potassium 3.4 L Chloride 107 Carbon Dioxide 24.0 Anion Gap 10 BUN 11 Creatinine 0.66 Estim Creat Clear Calc 102.87 Est GFR (MDRD) Af Amer 122 Est GFR (MDRD) Non-Af 101 BUN/Creatinine Ratio 16.8 Glucose 137 H Calcium 8.1 L Vitamin B12 190 L Medical Necessity - Tobacco Use Smoking Status: Never smoker Assessment/Plan Status post left total hip arthroplasty with hardware removal Postop anemia secondary to acute blood loss/stable Hypokalemia/stable Plan 1. Continue all pain medications as prescribed 2. Aspirin 325 mg 1 p.o. every 12 hours ?30 days for postop DVT prophylaxis 3. Follow-up as scheduled 4. Continue physical therapy outpatient, weight-bear as tolerated with walker 5. Discharge home today 6. Follow-up with PCP in 1 week, repeat BMP in 5 days 7. Increase potassium intake orally, with bananas, and sports drink, as discussed with patient
--- NOTE | 2018-04-05 11:51 | PCM.DC.THR ---
Discharge Diet: No Restrictions Discharge Activity: May Not Drive, May Shower, Use Walker May shower in (days): 2 - only if incision is dry and without drainage. Do NOT soak/submerge in tub/pool/isidro/stream/hot tub. May resume sexual activity in: No Restrictions Ice area for (Minutes): 20 - every hour while awake Weight Bearing Status: Weight bearing as tolerated Lifting Restrictions: 20 pounds Elevate: Operative Extremity Call your doctor if your incision/area has: Continuous Slow Oozing, Sudden Increased Bleeding, Increased Pain/ Swelling, Increased Redness, Foul Smelling Discharge Call your doctor if you observe: Fever of 101 or Higher, Inability to urinate, Inability to have a bowel movement, Shortness of breath, Fainting spells, Chest pain, Increased palpitations (irregular heartbeat), Calf discomfort, Uncontrolled pain Change Dressing in (Days):: 1 - Change daily and as needed. Cleanse incision/area with: Soap & Water Allergies/Adverse Reactions: Allergies carbamazepine [From Tegretol] Allergy (Verified 04/02/18 19:51) Rash Fever Sulfa (Sulfonamide Antibiotics) Allergy (Verified 04/02/18 19:51) Hives Medications to take at Discharge Cyclobenzaprine [Flexeril] 10 mg PO TID PRN PRN 04/02/18 Ibuprofen [Motrin] 800 mg PO TID PRN PRN 04/02/18 Levonorgestrel-Ethin Estradiol [[place]olessa 0.15 mg-0.03 mg Tablet] 1 each PO DAILY 04/02/18 Levothyroxine Sodium [Synthroid] 112 mcg PO DAILY 04/02/18 Lisinopril/Hydrochlorothiazide [Zestoretic 20-25 mg Tablet] 1 each PO DAILY 04/02/18 Loperamide HCl [Imodium A-D] 2 mg PO DAILY 04/02/18 Metoprolol Succinate 50 mg PO DAILY 04/02/18 Perphenazine 12 mg PO BID 04/02/18 Acetaminophen [Tylenol Tablet] 650 mg PO Q6H PRN PRN #90 tab 04/05/18 Aspirin 325 mg PO BIDCM #60 tab 04/05/18 Oxycodone [Oxyir] 5 mg PO Q6H PRN PRN 7 Days #60 tab 04/05/18 morphine SR tablet [Ms Contin] 15 mg PO BID 7 Days #14 tab 04/05/18 The following prescriptions were given: Acetaminophen [Tylenol Tablet] 650 mg PO Q6H PRN PRN #90 tab PRN Reason: Mild Pain (scale 0-3)/T>100.7 Oxycodone [Oxyir] 5 mg PO Q6H PRN PRN 7 Days #60 tab PRN Reason: Moderate Pain (pain scale 4-5) Aspirin 325 mg PO BIDCM #60 tab morphine SR tablet [Ms Contin] 15 mg PO BID 7 Days #14 tab Test Results: Test results from this visit will be discussed in further detail at your follow-up appointment, if applicable. Please Follow Up With: Raghav Peña DO
--- NOTE | 2018-04-05 12:27 | CASEMGMT ---
KIMMY DIAZ NOTE: [facility] order [facility] @ [phone] Catina ASH RN, CM
--- NOTE | 2018-04-05 13:43 | CASEMGMT ---
KIMMY DIAZ NOTE: Spoke with [facility] and they confirmed they did receive D/C Instructions and HHC order. Catina ASH RN CM
[2018-04-05 16:00] VITALS: BP 117/74; PULSE 102; RESP 18; TEMP 37.1; O2SAT 100
--- NOTE | 2018-04-11 17:13 | PCM.DC.SUM ---
Discharge Date and Diagnosis Date of Admission: 04/02/18 Date of Discharge: 04/05/18 Hospital Course and Treatment Operations: total hip replacement Summary of Care Provided: The patient is a 52 year old F [] Patient was admitted with intractable left hip pain due to retained failure of hardware from a previous femoral neck fracture. Patient underwent a removal of hardware and a left total hip hemiarthroplasty was performed by Dr. Raghav Peña. Intraoperatively was uneventful for complete details please see the dictated op note. Patient's remains stable in recovery was admitted with [facility] third floor where she participated postop pain management medical management rehab. Her stay was uneventful patient did experience postop anemia status post acute blood loss which she remains stable. Patient's pain was well managed. Patient was placed on aspirin 325 mg 1 p.o. every 12 hours ?30 days for postop DVT prophylaxis. Patient was discharged where she will continue with her outpatient therapy. She will continue all pain medications as prescribed. Will follow up with Dr. Peña as scheduled. Discharge Diet: No Restrictions Discharge Activity: May Not Drive, May Shower, Use Walker May shower in (days): 2 - only if incision is dry and without drainage. Do NOT soak/submerge in tub/pool/isidro/stream/hot tub. May resume sexual activity in: No Restrictions Ice area for (Minutes): 20 - every hour while awake Weight Bearing Status: Weight bearing as tolerated Keep extremity elevated above heart level: Operative Extremity Call your doctor if your incision/area has: Continuous Slow Oozing, Sudden Increased Bleeding, Increased Pain/ Swelling, Increased Redness, Foul Smelling Discharge Call your doctor if you observe: Fever of 101 or Higher, Inability to urinate, Inability to have a bowel movement, Shortness of breath, Fainting spells, Chest pain, Increased palpitations (irregular heartbeat), Calf discomfort, Uncontrolled pain Change Dressing in (Days):: 1 - Change daily and as needed. Cleanse incision/area with: Soap & Water Home Medications: Medications to take at Discharge Cyclobenzaprine [Flexeril] 10 mg PO TID PRN PRN 04/02/18 Ibuprofen [Motrin] 800 mg PO TID PRN PRN 04/02/18 Levonorgestrel-Ethin Estradiol [Jolessa 0.15 mg-0.03 mg Tablet] 1 each PO DAILY 04/02/18 Levothyroxine Sodium [Synthroid] 112 mcg PO DAILY 04/02/18 Lisinopril/Hydrochlorothiazide [Zestoretic 20-25 mg Tablet] 1 each PO DAILY 04/02/18 Loperamide HCl [Imodium A-D] 2 mg PO DAILY 04/02/18 Metoprolol Succinate 50 mg PO DAILY 04/02/18 Perphenazine 12 mg PO BID 04/02/18 Acetaminophen [Tylenol Tablet] 650 mg PO Q6H PRN PRN #90 tab 04/05/18 Aspirin 325 mg PO BIDCM #60 tab 04/05/18 Oxycodone [Oxyir] 5 mg PO Q6H PRN PRN 7 Days #60 tab 04/05/18 morphine SR tablet [Ms Contin] 15 mg PO BID 7 Days #14 tab 04/05/18 Following Prescrptions Were Given to Patient: Acetaminophen [Tylenol Tablet] 650 mg PO Q6H PRN PRN #90 tab PRN Reason: Mild Pain (scale 0-3)/T>100.7 Oxycodone [Oxyir] 5 mg PO Q6H PRN PRN 7 Days #60 tab PRN Reason: Moderate Pain (pain scale 4-5) Aspirin 325 mg PO BIDCM #60 tab morphine SR tablet [Ms Contin] 15 mg PO BID 7 Days #14 tab Please Follow Up With: Raghav Peña DO Medical Necessity - Tobacco Use Smoking Status: Never smoker Tobacco Use: Non-smoker Meaningful Use Info Meaningful Use Diagnoses (Choose all that apply): None applicable
== END 2018-04-05 17:42 | disposition home health service (06) | DRG 470 ==
PROVIDERS: Anesthesiology; Physician Assistant; Admitting Provider Orthopaedic Surgery; Visit Provider Orthopaedic Surgery
PROC: 0SRB0JZ Replacement of Left Hip Joint with Synthetic Substitute, Open Approach (ICD-10-PCS; CPT 27130; principal; 2018-04-03 07:55)
DX: T84.195A Other mechanical complication of internal fixation device of left femur, initial encounter (principal); S72.142P Displaced intertrochanteric fracture of left femur, subsequent encounter for closed fracture with malunion; D62 Acute posthemorrhagic anemia; I10 Essential (primary) hypertension; F31.9 Bipolar disorder, unspecified; E03.9 Hypothyroidism, unspecified; E87.6 Hypokalemia; Y93.01 Activity, walking, marching and hiking
CPT/HCPCS: 36415; 72170; 73502; 80048; 81002; 82607; 82746; 84439; 84443; 84481; 84702; 85025; 85027; 86850; 86900; 88305; 88311; 93005; 97110; 97116; 97162; 97166; 97530; 97535; C1776; J7120; A4216; J0744; J2405